=== PATIENT | female | born 1945 | race Caucasian/White ===

== ENCOUNTER → 2019-02-22 | Outpatient (CLI) | payer MEDICARE, OTHER | LOC: MC.RAD 16:03 | DX: Z12.31 Encounter for screening mammogram for malignant neoplasm of breast (principal); N64.89 Other specified disorders of breast ==

== ENCOUNTER 2020-02-25 22:14 | Emergency (ER) | payer MEDICARE, OTHER ==
[~2020-02-25] VITALS: Ht 162.6 cm; Wt 81.8 kg
[2020-02-25 23:24] LABS: BASO % 0.1 % (0.0-2.0); GRAN # 5.2 (1.4-6.5); GRAN % 69.4 % (42.2-75.2); HEMATOCRIT 39.2 % (37.0-47.0); HEMOGLOBIN 12.8 g/dl (12.5-16.0); LYMPH # 1.6 (1.2-3.4); LYMPH % 20.8 % (20.0-51.0); MEAN CELL VOLUME 88 fl (80.0-100.0); MEAN CORPUSCULAR HEMOGLOBIN 29 pg (27.0-31.0); MEAN CORPUSCULAR HGB CONC 33 g/dl (33.0-37.0); MEAN PLATELET VOLUME 9.2 fl (7.4-10.4); MONO # 0.7 (0.1-0.6); MONO % 9.4 % (1.7-9.3); PLATELET COUNT 334 K/mm3 (130-400); RED BLOOD COUNT 4.48 M/mm3 (4.10-5.30); REDCELL DISTRIBUTION WIDTH-CV 13.2 % (11.5-14.5)
[2020-02-25 23:34] LABS: ALANINE AMINOTRANSFERASE 28 U/L (4-34); ALBUMIN 4.2 gm/dL (3.5-5.0); ALKALINE PHOSPHATASE 47 U/L (50-136); ANION GAP 13 mmol/L (7-16); AST,SGOT 34 U/L (15-37); BILIRUBIN,TOTAL 0.7 mg/dL (0.0-1.0); BLOOD UREA NITROGEN 13 mg/dL (7-17); CALCIUM 8.7 mg/dL (8.4-10.2); CARBON DIOXIDE 22 mmol/L (22-30); CHLORIDE 100 mmol/L (98-107); CREATININE, serum 0.81 (0.52-1.25); GLUCOSE 121 mg/dL (74-106); POTASSIUM 3.7 mmol/L (3.4-5.0); SODIUM 134 mmol/L (137-145); TOTAL PROTEIN 7.4 gm/dL (6.4-8.2)
[2020-02-25 23:45] LABS: TROPONIN-I < 0.012 ng/mL (0.000-0.035)
[2020-02-26 00:25] VITALS: BP 121/74; PULSE 84; TEMP 99.8
== END 2020-02-26 00:30 | disposition home or self-care (01) ==
LOC: COL.ER 22:14
PROVIDERS: Nurse Practitioner
DX: U07.1 COVID-19 (principal)
CPT/HCPCS: J7030

== ENCOUNTER → 2020-09-13 | Outpatient (CLI) | payer MEDICARE ==
[~2020-09-13] MED LIST: GLUCOPHAGE500 MG/TAB PO; NORCO 325 MG-51 TAB PO; SYNTHROID0.125 MG/T PO
== END ==
LOC: MC.RAD 10:37
DX: Z12.31 Encounter for screening mammogram for malignant neoplasm of breast (principal); N63.10 Unspecified lump in the right breast, unspecified quadrant

== ENCOUNTER → 2020-09-17 | Outpatient (CLI) | payer MEDICARE | LOC: MC.RAD 07:51 | DX: N63.12 Unspecified lump in the right breast, upper inner quadrant (principal) ==

== ENCOUNTER → 2020-09-19 | Outpatient (CLI) | payer MEDICARE, OTHER | LOC: MC.RAD 07:00 | DX: N63.10 Unspecified lump in the right breast, unspecified quadrant (principal) ==

== ENCOUNTER → 2020-10-04 | Day surgery (SDC) | payer MEDICARE, OTHER | LOC: MC.RAD 12:54 | DX: C50.211 Malignant neoplasm of upper-inner quadrant of right female breast (principal) | CPT/HCPCS: 32605; C1769 ==

== ENCOUNTER 2020-10-05 11:07 | Day surgery (SDC) | payer MEDICARE, OTHER ==
[~2020-10-05] VITALS: Ht 162.6 cm; Wt 78.4 kg
[2020-10-05 11:06] VITALS: BP 124/59; PULSE 66; TEMP 98.3
[2020-10-05] MEDS ORDERED: SYNTHROID0.125 MG/T PO (11:27)
[2020-10-05] MEDS ORDERED: GLUCOPHAGE500 MG/TAB PO (11:27)
[2020-10-05] MEDS ORDERED: NORCO 325 MG-51 TAB PO (13:33)
[2020-10-05 14:11] VITALS: TEMP 97.3
[2020-10-05 14:25] VITALS: BP 124/58; PULSE 61
--- NOTE | 2020-10-05 14:25 | NUR ---
Patient returns to room 2 per cart from PACU accompanied by Eda ROBBINS and arouses to verbal stimuli. Drowsy and allowed to rest. IV fluids infusing. On oxygen at 2L per nasal cannula. Temp 97.8. Siderails up x2 and call light in reach. Dressing x2 over the right breast clean and dry.
[2020-10-05 14:40] VITALS: BP 123/57; PULSE 65
--- NOTE | 2020-10-05 14:40 | NUR ---
Awake and drinking water. Talking with friend. Oxygen removed and sats 96% on room air.
[2020-10-05 14:55] VITALS: BP 119/66; PULSE 58
--- NOTE | 2020-10-05 14:55 | NUR ---
Eating muffin and denies pain or nausea.
--- NOTE | 2020-10-05 15:00 | NUR ---
Assisted up to the bathroom and gait is steady.
--- NOTE | 2020-10-05 15:10 | NUR ---
IV discontinued and site is free of redness or swelling. Assisted with dressing. Dressing remains clean and dry on the right breast.
--- NOTE | 2020-10-05 15:20 | NUR ---
Given dismissal instructions and voices understanding of these. All questions answered.
--- NOTE | 2020-10-05 15:30 | NUR ---
Dismissal instructions signed and assisted into wheelchair with personal belongings.
--- NOTE | 2020-10-05 15:33 | NUR ---
Patient dismissed to home driven by friend and assisted into vehicle by this RN and dismissed to home with instructions in hand.
== END 2020-10-05 15:33 | disposition home or self-care (01) ==
LOC: SDCO 11:07
DX: C50.211 Malignant neoplasm of upper-inner quadrant of right female breast (principal); Z17.0 Estrogen receptor positive status [ER+]; E03.9 Hypothyroidism, unspecified; E11.9 Type 2 diabetes mellitus without complications; Z20.822 Contact with and (suspected) exposure to COVID-19; Z79.84 Long term (current) use of oral hypoglycemic drugs; Z79.890 Hormone replacement therapy
CPT/HCPCS: A4648; A9541; J0690; J1100; J1885; J2250; J2405; J2704; J2795; J3010; J7120; Q9968

== ENCOUNTER → 2021-09-16 | Outpatient (CLI) | payer MEDICARE | LOC: MC.RAD 10:44 | DX: Z12.31 Encounter for screening mammogram for malignant neoplasm of breast (principal); Z85.3 Personal history of malignant neoplasm of breast ==

== ENCOUNTER → 2023-07-24 | Outpatient (CLI) | payer MEDICARE, OTHER | LOC: MC.RAD 09:19 | DX: Z12.31 Encounter for screening mammogram for malignant neoplasm of breast (principal) ==

== ENCOUNTER → 2023-11-17 | Outpatient (CLI) | payer MEDICARE, OTHER | LOC: COL.VAS 08:34 | DX: I34.0 Nonrheumatic mitral (valve) insufficiency (principal) ==